=== PATIENT | female | born 1995 ===

== ENCOUNTER 2017-06-14 08:42 | Emergency (ER) | payer MEDICAID ==
[2017-06-14 08:51] VITALS: BP 131/70
[2017-06-14 08:58] VITALS: RESP 16
--- NOTE | 2017-06-14 10:04 | ED PDOC ---
History of Present Illness History of Present Illness: 21 y/o female, hx of suicide attempt 2 years ago, presents for evaluation of flu -like symptoms. Symptoms started Sunday evening, consisting of nasal congestion , cough, body aches, and feeling feverish. Symptoms worsened over the past few days. Last night she started getting chest pain from coughing so frequently, and as symptoms have been unrelenting, she has decided to present for evaluation today. Cough is predominantly phelgmous sounding. No SOB. Single episode of post-tussive emesis this morning. Has not taken any medications for symptoms. Mother was sick with similar symptoms last week. No influenza vaccine this season. PMHx: amenorrhic x4 years (2/2 to malnourishment in past), hx of pneumonia 1 year ago Meds: none ALL: NKDA <Avi Sifuentes - Last Filed: 06/14/17 13:40> HPI: Influenza <Avi Sifuentes - Last Filed: 06/14/17 13:40> <Alisa Enrique - Last Filed: 06/15/17 22:57> Time Seen by Provider: 06/14/17 09:23 Chief Complaint: Cough, Cold, Congestion Past Medical History Reviewed: Historical Data, Nursing Documentation, Vital Signs Vital Signs: Last Vital Signs Temp 102.3 F H 06/14/17 08:57 Pulse 119 H 06/14/17 08:57 Resp 16 06/14/17 08:57 BP 131/70 06/14/17 08:57 Pulse Ox 100 06/14/17 08:57 - Medical History PMH: Denies: Diabetes, Hepatitis, HIV, HTN, Seizures, Sexually Transmitted Disease - Family History Family History: States: Unknown Family Hx <Avi Sifuentes - Last Filed: 06/14/17 13:40> Reviewed: Historical Data Vital Signs: Last Vital Signs Temp 98.9 F 06/14/17 12:53 Pulse 89 06/14/17 12:53 Resp 16 06/14/17 12:53 BP 131/70 06/14/17 08:57 Pulse Ox 100 06/14/17 13:41 - Medical History PMH: No Chronic Diseases - Surgical History Surgical History: No Surg Hx <Alisa Enrique - Last Filed: 06/15/17 22:57> - Home Medications Home Medications: Ambulatory Orders Medication Instructions Recorded Azithromycin [Z-Caleb] 250 mg PO ASDIR #6 tab 06/14/17 - Allergies Allergies/Adverse Reactions: Allergies Allergy/AdvReac Type Severity Reaction Status Date / Time No Known Allergies Allergy Verified 04/13/15 13:52 Review of Systems Constitutional: Positive for: Fever, Chills, Weakness, Malaise. Negative for: Sweats, Weight loss Eyes: Negative for: Vision Change ENT: Positive for: Nose Discharge, Nose Congestion, Throat Pain. Negative for: Ear Discharge, Nose Pain Cardiovascular: Positive for: Chest Pain (post-tussive). Negative for: Palpitations, Orthopnea, Paroxysmal Noc. Dyspnea, Edema, Light Headedness <Avi Sifuentes - Last Filed: 06/14/17 13:40> ROS Statement: Except As Marked, All Systems Reviewed And Found Negative <Alisa Enrique - Last Filed: 06/15/17 22:57> Physical Exam - Reviewed Nursing Documentation Reviewed: Yes Vital Signs Reviewed: Yes - Physical Exam Appears: Positive for: Non-toxic, No Acute Distress Head Exam: Positive for: ATRAUMATIC, NORMAL INSPECTION, NORMOCEPHALIC Skin: Positive for: Warm, Dry. Negative for: Diaphoresis, Pallor, Rash, Mottled Eye Exam: Positive for: Normal appearance, EOMI, PERRL. Negative for: Conjunctival injection ENT: Positive for: Pharynx Is (erythematous), Nasal Congestion, Pharyngeal Erythema. Negative for: Tonsillar Exudate Neck: Positive for: Normal, Painless ROM, Supple Cardiovascular/Chest: Positive for: Regular Rate, Rhythm, Chest Non Tender, Tachycardia. Negative for: Edema, Gallop, JVD Respiratory: Positive for: Rhonchi (left mid lung field, posterior aspect ). Negative for: Decreased Breath Sounds, Accessory Muscle Use, Crackles, Rales, Wheezing, Respiratory Distress, Plerual Rub Pulses-Radial (L): 2+ Pulses-Radial (R): 2+ Gastrointestinal/Abdominal: Positive for: Bowel Sounds (hyperactive ), Soft. Negative for: Tenderness, Organomegaly, Mass, Distended, Guarding, Rebound Back: Negative for: L CVA Tenderness, R CVA Tenderness Extremity: Positive for: Capillary Refill (<2s) Lymphatic: Positive for: Adenopathy (cervical adenopathy) Neurologic/Psych: Positive for: Alert, wireless store manager II-XII, Oriented. Negative for: Motor/Sensory Deficits <Avi Sifuentes - Last Filed: 06/14/17 13:40> - Reviewed Nursing Documentation Reviewed: Yes <Alisa Enrique - Last Filed: 06/15/17 22:57> - Laboratory Results Result Diagrams: 06/14/17 09:59 06/14/17 09:59 - ECG O2 Sat by Pulse Oximetry: 100 - Progress ED Course And Treament: influenza/viral URI/pneumonia CBC BMP UA Udip rapid flu rapid strep CXR Tylenol 650mg Heplock 2 L NS bolus -11:40am -fever remains at 102.6, CXR suspected early infiltrate in LLL field -VBG -Blood culture -motrin 600mg PO -1gm Rocephin IVP -500mg Azithromycin IVP re-evaluate Condition: Re-examined <Avi Sifuentes - Last Filed: 06/14/17 13:40> - Laboratory Results Result Diagrams: 06/14/17 09:59 06/14/17 09:59 - Progress ED Course And Treament: MDM above Re-evaluation Time: 13:40 Condition: Improved <Alisa Enrique - Last Filed: 06/15/17 22:57> Disposition - Patient ED Disposition Is Patient to be Admitted: No - Disposition Disposition: Routine/Home Disposition Time: 13:41 <Avi Sifuentes - Last Filed: 06/14/17 13:40> Counseled Patient/Family Regarding: Studies Performed, Diagnosis, Need For Followup <Alisa Enrique - Last Filed: 06/15/17 22:57> - Clinical Impression Clinical Impression: Bronchitis, Pulmonary nodule, Common cold - Disposition Referrals: [facility] [Outside] Condition: GOOD Additional Instructions: Take your medications as instructed. Follow up with your PCP in 2-3 days. Prescriptions: Azithromycin [Z-Caleb] 250 mg PO ASDIR #6 tab Instructions: Acute Bronchitis, Pulmonary Nodule Forms: [facility] ED School/Work Excuse
[2017-06-14] MEDS: Sodium Chloride 0.9% 1,000 ML IV SCH ×2 (10:25→11:35)
[2017-06-14 10:43] LABS: HEMOGLOBIN 15.8 g/dL (12.0-16.0); MEAN CELL VOLUME 89.9 fl (81.0-99.0); MEAN CORPUSCULAR HGB CONC 34.5 g/dL (33.0-37.0); RBC 5.1 Mil/uL (3.80-5.20); RED CELL DISTRIBUTION WIDTH 13.1 % (11.5-14.5); WHITE BLOOD COUNT 8.3 K/uL (4.8-10.8)
[2017-06-14 10:59] LABS: SQUAMOUS EPITHIAL 9 /hpf (0-5); URINE BACTERIA MANY (<OCC); URINE BILIRUBIN NEGATIVE (NEGATIVE); URINE CLARITY CLOUDY (Clear); URINE COLOR AMBER (YELLOW); URINE GLUCOSE (UA) NEG (Normal); URINE LEUKOCYTE ESTERASE TRACE Leu/uL (Negative); URINE PROTEIN 100 mg/dL (NEGATIVE)
[2017-06-14 11:00] LABS: URINE BLOOD TRACE-INTACT (NEGATIVE)
[2017-06-14 11:11] LABS: BLOOD UREA NITROGEN 10 mg/dl (7-17); CALCIUM 9.2 mg/dL (8.4-10.2); GFR AFRICAN-AMERICAN > 60; GFR NON-AFRICAN AMERICAN > 60
[2017-06-14] MEDS ORDERED: Azithromycin 500 MG in Sodium Chloride 0.9% 250 ML IVPB STA (11:39)
[2017-06-14] MEDS ORDERED: cefTRIAXone (Rocephin) 1 gm Inj ONE (12:02)
[2017-06-14 12:10] LABS: VENOUS BLOOD GAS BASE EXCESS -1.8 mmol/L (0.0-2.0); VENOUS BLOOD GAS PCO2 39 mmHg (40-60); VENOUS BLOOD GAS PO2 42 mm/Hg (30-55); VENOUS BLOOD PH 7.38 (7.32-7.43)
--- NOTE | 2017-06-14 12:31 | RAD ---
HISTORY: Fever / rhonchi in left mid lung field COMPARISON: Comparison made with chest radiograph 04/20/2015 TECHNIQUE: Chest PA and lateral FINDINGS: LUNGS: No acute consolidation. There is a small elliptical shaped nodular density left lateral mid to upper lung field overlying the left posterolateral 6th rib that could represent confluence of shadow artifact though a small nodule or granuloma not excluded. Followup nonemergent CT scan of the chest recommended for further evaluation. PLEURA: No significant pleural effusion identified. No pneumothorax apparent. CARDIOVASCULAR: Normal. OSSEOUS STRUCTURES: No significant abnormalities. VISUALIZED UPPER ABDOMEN: Normal. OTHER FINDINGS: None. IMPRESSION: No acute consolidation. There is a small elliptical shaped nodular density left lateral mid to upper lung field overlying the left posterolateral 6th rib that could represent confluence of shadow artifact though a small nodule or granuloma not excluded. Followup nonemergent CT scan of the chest recommended for further evaluation. . Note that this report was placed in PA review folder for followup.
[2017-06-14 12:53] VITALS: PULSE 89; TEMP 98.9
[2017-06-14 13:33] VITALS: O2SAT 100
== END 2017-06-14 14:26 | disposition home or self-care (01) ==
LOC: H.ER 08:42
DX: J40 Bronchitis, not specified as acute or chronic (principal); R91.1 Solitary pulmonary nodule; J00 Acute nasopharyngitis [common cold]
CPT/HCPCS: 71046; 80048; 81003; 82803; 85027; 87040; 87070; 87430; 87804; 96361; 96365; 96367; 99283; J0456; J0696; J7040; J7050